=== PATIENT | female | born 1975 | race Caucasian/White ===

== ENCOUNTER 2020-12-14 11:27 | Emergency (ER) | payer MEDICAID, MEDICARE ==
[~2020-12-14] VITALS: Ht 149.9 cm; Wt 79.7 kg
[2020-12-14 12:33] LABS: BASOPHILS # (AUTO) 0.1 X10'3 (0-0.2); BASOPHILS % (AUTO) 0.5 % (0-1); EOSINOPHILS % (AUTO) 0 % (0-6); HEMATOCRIT 39.9 % (35.0-45.0); HEMOGLOBIN 13.7 g/dl (12.0-16.0); LYMPHOCYTES # (AUTO) 0.8 X10'3 (1.1-4.8); MEAN CORPUSCULAR HEMOGLOBIN 31.3 PG (27.0-31.0); MEAN CORPUSCULAR HGB CONC 34.3 g/dL (33.0-36.5); MEAN CORPUSCULAR VOLUME 91.3 FL (78-98); MEAN PLATELET VOLUME 9.4 FL (7.4-10.4); MONOCYTES # (AUTO) 0.4 X10'3 (0-0.9); MONOCYTES % (AUTO) 2.8 % (2-12); NEUTROPHILS # (AUTO) 11.4 X10'3 (1.8-7.7); NEUTROPHILS % (AUTO) 90.7 % (42-75); PLATELET COUNT 244 X10'3 (140-440); RED BLOOD COUNT 4.37 X10'6 (4.20-5.60); RED CELL DISTRIBUTION WIDTH 12.4 % (11.5-14.5); WHITE BLOOD COUNT 12.6 X10'3 (4.5-11.0)
[2020-12-14 12:41] LABS: ALANINE AMINOTRANSFERASE 28 U/L (12-78); ALBUMIN/GLOBULIN RATIO 1.2 (1.1-1.5); ALKALINE PHOSPHATASE 81 IU/L (46-116); AMYLASE 20 U/L (25-115); ANION GAP 10 (8-16); ASPARTATE AMINO TRANSFERASE 19 U/L (10-37); BILIRUBIN,TOTAL 0.6 MG/DL (0.1-1.0); BLOOD UREA NITROGEN 15 MG/DL (7-18); CALCIUM 8.5 MG/DL (8.5-10.1); CHLORIDE 102 MMOL/L (99-107); CREATININE 0.75 MG/DL (0.40-0.90); GLUCOSE 120 MG/DL (70-104); LIPASE < 50 U/L (73-393); POTASSIUM 3.7 MMOL/L (3.5-5.1); SODIUM 140 MMOL/L (135-145); TOTAL CARBON DIOXIDE 27.9 MMOL/L (24-32); TOTAL PROTEIN 7.3 G/DL (6.4-8.2); eGFR 84 ML/MIN
[2020-12-14] MEDS ORDERED: famotidine 10mg tablet PO STA (13:41)
[2020-12-14] MEDS ORDERED: proCHLORperazine 10 MG/2 ml inj IV ONE (13:45)
[2020-12-14] MEDS ORDERED: mag hydrox/Alum hydrox/simeth 30ml oral suspension PO ONE (13:45)
[2020-12-14] MEDS ORDERED: LIDOcaine Viscous 15ml cup MM ONE (13:45)
[2020-12-14] MEDS ORDERED: diphenhydrAMINE 50 mg/ml inj IV ONE (13:45)
[2020-12-14] MEDS ORDERED: normal saline 1000ML IV soln IVB ONE (13:45)
[2020-12-14] MEDS ORDERED: iohexol 300mg/ml 100ml inj. ONE (14:54)
[2020-12-14] MEDS ORDERED: morphine 2 MG/ML inj. syringe IV ONE (15:05)
[2020-12-14 15:26] LABS: URINE HCG NEGATIVE (NEG)
[2020-12-14 15:27] LABS: CLARITY,URINE CLEAR (Clear); COLOR,URINE YELLOW (Yellow); GLUCOSE, URINE NEGATIVE (Neg); KETONES,URINE >=80 mg/dl (Neg); LEUKOCYTE ESTERASE ,URINE NEGATIVE (Neg); NITRITES, URINE NEGATIVE (Neg); OCCULT BLOOD,URINE LARGE (Neg); PH,URINE 7.5 (4.8-8.0); PROTEIN,URINE NEGATIVE (Neg)
[2020-12-14 15:29] LABS: UA COLLECTION TYPE CLN CATCH MIDSTREAM
[2020-12-14 15:32] LABS: AMORPHOUS PHOSPHATES 1+; BACTERIA,URINE NONE SEEN /HPF (Neg); MUCUS STRANDS FEW /LPF (Neg); RBC,URINE NONE SEEN /HPF (0-2); SQUAMOUS EPITHELIAL CELL,UR FEW /LPF (FEW); WBC,URINE 0-4 /HPF (0-4)
[2020-12-14 15:35] LABS: BETA HCG,QUANTITATIVE < 1.0 mIU/ml
[2020-12-14 15:39] LABS: URINE AMPHETAMINE SCREEN NEGATIVE (Neg); URINE BARBITUATE SCREEN NEGATIVE (Neg); URINE BENZODIAZEPINES SCREEN NEGATIVE (Neg); URINE CANNABINOID SCREEN POSITIVE (Neg); URINE COCAINE SCREEN NEGATIVE (Neg); URINE METHADONE SCREEN NEGATIVE (Neg); URINE OPIATE SCREEN NEGATIVE (Neg); URINE PHENCYCLIDINE SCREEN NEGATIVE (Neg)
[2020-12-14] MEDS ORDERED: SULF1TAB49 PO (16:46)
[2020-12-14] MEDS ORDERED: HYDR-3965 PO (16:46)
[2020-12-14 16:58] VITALS: BP 103/71
[2020-12-15 06:46] LABS: OCCULT BLOOD STOOL POSITIVE (Neg)
== END 2020-12-14 16:59 | disposition home or self-care (01) ==
LOC: ER 11:28
DX: K52.9 Noninfective gastroenteritis and colitis, unspecified (principal); Z86.2 Personal history of diseases of the blood and blood-forming organs and certain disorders involving the immune mechanism; Z86.69 Personal history of other diseases of the nervous system and sense organs; Z98.890 Other specified postprocedural states; Z88.6 Allergy status to analgesic agent
CPT/HCPCS: 36415; 74177; 80053; 80305; 81001; 81025; 82150; 82272; 83690; 84702; 85025; 93005; 96361; 96374; 96375; 99285; J0780; J1200; J2270; J7030; Q9967